=== PATIENT | female | born 1975 | race Two or more races ===

== ENCOUNTER 2022-05-01 18:15 | Emergency (ER) | payer BC, OTHER ==
[~2022-05-01] VITALS: Ht 167.6 cm; Wt 86.4 kg
[2022-05-02 02:00] VITALS: BP 105/67
[2022-05-02] MEDS ORDERED: KETOROLAC TROMETH 60MG/2ML VIAL IM ONE (07:00)
[2022-05-02] MEDS ORDERED: PANT40TA2 PO (07:08)
[2022-05-02] MEDS ORDERED: IBUP800T27 PO (07:08)
== END 2022-05-02 07:45 | disposition home or self-care (01) ==
LOC: ER 18:15
DX: S93.402A Sprain of unspecified ligament of left ankle, initial encounter (principal); Z76.0 Encounter for issue of repeat prescription; X50.1XXA Overexertion from prolonged static or awkward postures, initial encounter; Y93.89 Activity, other specified; Y92.89 Other specified places as the place of occurrence of the external cause; Y99.8 Other external cause status
CPT/HCPCS: 73610; 81025; 96372; 99284; J1885